=== PATIENT | male | born 1970 ===

== ENCOUNTER 2018-03-16 16:18 | Inpatient (IN) | payer MEDICARE, MEDICAID ==
[2018-03-16 16:32] VITALS: BMI 31.5
--- NOTE | 2018-03-16 16:50 | C.PDOC ---
History Of Present Illness 47 year old male presents to the ED requesting heroin detox. Patient reports using 7-10 bags daily and states he last used 4 bags at 0600 today. He denies suicidal/homicidal ideation at this time. Time Seen by Provider: 03/16/18 16:39 Chief Complaint (Nursing): Substance Abuse History Per: Patient History/Exam Limitations: no limitations Onset/Duration Of Symptoms: Hrs Current Symptoms Are (Timing): Still Present Suicide/Self Injury Attempted (Context): None Modifying Factor(s): Narcotics (heroin ) Associated Symptoms: denies: Suicidal Thoughts, Suicidal Plan Involuntary Hold By: None Recent travel outside of the [place]: No Additional History Per: Patient Past Medical History Reviewed: Historical Data, Nursing Documentation, Vital Signs Vital Signs: Last Vital Signs Temp 98.3 F 03/16/18 19:20 Pulse 78 03/16/18 19:01 Resp 18 03/16/18 19:01 BP 140/85 03/16/18 19:01 Pulse Ox 98 03/16/18 19:01 - Medical History PMH: Back Problems Surgical History: No Surg Hx Family History: States: Unknown Family Hx - Social History Hx Alcohol Use: Yes Hx Substance Use: Yes - Immunization History Hx Tetanus Toxoid Vaccination: Yes (2017) Hx Influenza Vaccination: No Hx Pneumococcal Vaccination: No Review Of Systems Psych: Positive for: Other (heroin detox ). Negative for: Suicidal ideation Physical Exam - Physical Exam Appears: Non-toxic, No Acute Distress Skin: Normal Color, Warm, Dry Head: Atraumatic, Normacephalic Eye(s): bilateral: Normal Inspection Oral Mucosa: Moist Neck: Supple Chest: Symmetrical, No Deformity, No Tenderness Cardiovascular: Rhythm Regular, No Murmur Respiratory: Normal Breath Sounds, No Rales, No Rhonchi, No Wheezing Extremity: Normal ROM, Capillary Refill (less than 2 seconds ) Neurological/Psych: Oriented x3, Normal Speech, Normal Cognition ED Course And Treatment - Laboratory Results Result Diagrams: 03/16/18 17:02 03/16/18 17:02 O2 Sat by Pulse Oximetry: 97 (on RA) Pulse Ox Interpretation: Normal Medical Decision Making Medical Decision Making: Progress: Bloodwork and urinalysis ordered and reviewed. 1730 Patient has been medically cleared. Disposition - Disposition Disposition: HOME/ ROUTINE Disposition Time: 19:31 Condition: STABLE - Clinical Impression Clinical Impression: Drug abuse - Scribe Statement The provider has reviewed the documentation as recorded by the Scribe (Zoraida Schwarz) Provider Attestation: All medical record entries made by the Scribe were at my direction and personally dictated by me. I have reviewed the chart and agree that the record accurately reflects my personal performance of the history, physical exam, medical decision making, and the department course for this patient. I have also personally directed, reviewed, and agree with the discharge instructions and disposition. Decision To Admit - Pt Status Changed To: Hospital Disposition Of: Inpatient - Admit Certification Admit to Inpatient:: After my assessment, the patient will require hospitalization for at least two midnights. This is because of the severity of symptoms shown, intensity of services needed, and/or the medical risk in this patient being treated as an outpatient. - InPatient: Physician Admission Certification: I certify that this patient requires 2 or more midnights of care for the following reason:: needs detox - . Bed Request Type: Detox Admitting Physician: Jana Ware Patient Diagnosis: Drug abuse
[2018-03-16 17:15] LABS: BASO # 0.1 K/uL (0.0-0.2); BASO % 1.4 % (0.0-2.0); EOS % 13.1 % (0.0-4.0); HEMOGLOBIN 13.2 g/dL (12.0-18.0); LYMPH # 2.1 K/uL (1.0-4.3); LYMPH % 28.7 % (20.0-40.0); MEAN CELL VOLUME 88.6 fL (80.0-94.0); MEAN CORPUSCULAR HEMOGLOBIN 30.1 pg (27.0-31.0); MEAN PLATELET VOLUME 8.1 fL (7.2-11.7); MONO # 0.7 K/uL (0.0-0.8); MONO % 9.6 % (0.0-10.0); NEUT # 3.5 K/uL (1.8-7.0); NEUT % 47.2 % (50.0-75.0); NRBC % 0.1 % (0.0-2.0); RBC 4.38 Mil/uL (4.40-5.90); RED CELL DISTRIBUTION WIDTH 13.9 % (11.5-14.5); WHITE BLOOD COUNT 7.4 K/uL (4.8-10.8)
[2018-03-16 17:24] LABS: SQUAMOUS EPITHIAL < 1 /hpf (0-5); URINE BACTERIA RARE (<OCC); URINE BILIRUBIN NEGATIVE (NEGATIVE); URINE BLOOD NEGATIVE (NEGATIVE); URINE CLARITY Hazy (Clear); URINE COLOR Yellow (YELLOW); URINE GLUCOSE (UA) NORMAL (Normal); URINE LEUKOCYTE ESTERASE NEG Leu/uL (Negative); URINE PROTEIN NEGATIVE (NEGATIVE); URINE UROBILINOGEN NORMAL mg/dL (0.2-1.0)
[2018-03-16 17:26] LABS: ALB/GLOB RATIO 1.2 (1.0-2.1); ALBUMIN 3.6 g/dL (3.5-5.0); ALT/SGPT 24 U/L (21-72); AST/SGOT 24 U/L (17-59); BLOOD UREA NITROGEN 17 mg/dL (9-20); CALCIUM 9.2 mg/dl (8.6-10.4); GFR AFRICAN-AMERICAN > 60; GFR NON-AFRICAN AMERICAN > 60
[2018-03-16 17:35] LABS: BARBITURATES, UR NEGATIVE (NEGATIVE); BENZODIAZEPINES, UR NEGATIVE (NEGATIVE); PHENCYCLIDINE, UR NEGATIVE (NEGATIVE)
[2018-03-16 17:37] LABS: OPIATES, UR POSITIVE (NEGATIVE)
--- NOTE | 2018-03-16 18:31 | PCM.BM ---
<Darryl Mendieta - Last Filed: 03/16/18 18:29> Treatment Plan Problems - Problems identified on initial assessmt potential for opiate withdrawal Date Initiated: 03/16/18 Time Initiated: 18:30 Status: Active Treatment assets and liabiliti Patient Assests: cooperative, ADL independent, cognitively intact Patient Liabilities: substance abuse - Milieu Protocol Maintain good personal hygiene: daily Encourage regular showers, daily Remind patient to perform daily oral care, daily Assist patient to perform ADL's Conduct patient checks and document Observation sheet: Q15 minutes Maintain personal safety: every shift Educate patient to report safety concerns to staff, every shift Monitor environment for contraband/sharps Medication safety: Monitor for expected outcome, potential side effects: every shift, Assess barriers to learning: every shift, Assess readiness for medication education: every shift <Reji Camacho - Last Filed: 03/17/18 15:20> - Diagnosis (1) Opioid use disorder, severe, dependence Status: Acute Interventions: 03/17/18 15:19 * Assess 7x/week regarding severity of withdrawal * Educate regarding risks, benefits, side effects and alternatives of medications * Use Motivational Interviewing for abstinence * Use CBT for relapse prevention * Medication management for withdrawal symptoms * Encourage medication assisted treatment *
[2018-03-17] MEDS ORDERED: Buprenorphine Hydrochloride 2 mg SL ONE ×4 (10:00→11:45)
--- NOTE | 2018-03-17 13:43 | PCM.PSYCH ---
Initial Psychiatric Evaluation - Initial Psychiatric Evaluation Type of Admission: Voluntary Legal Status: Capacity Chief Complaint (in patient's own words): CC: "I need help to get off heroin" History of Present Illness and Precipitating Events: HPI: 47 year old male presents for heroin detox. 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 He has a PMHx of back pain for which he took Percocet but began using heroin 1 year ago. He uses 7-10 bags intranasally daily, last use 4 bags yesterday at 6 AM. Patient also admits to using cocaine intranasally once a week starting one year ago. He smokes cigarettes and drinks alcohol occasionally. Patient reports one previous detox admission at [facility] toward the end of 2016 on Suboxone and stayed sober for 2-3 months before relapsing. He did not undergo rehab or followup in aftercare programs at the time. Denies hallucinations, suicidal or homicidal ideation. Patient states that he wishes to get off heroin because he is out of money and needs to get back to work. 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; born in [facility], lives in [place]; highest education 11th grade; uses 7 -10 bags intranasally daily; cocaine intranasally once a week; tobacco and alcohol use occasionally Family hx: denies family hx of psychiatric disorders or drug use Current Medications: Active Medications Generic Name Dose Route Start Last Admin Trade Name Freq PRN Reason Stop Dose Admin Buprenorphine HCl 6 mg 03/18/18 10:00 Subutex SL 03/21/18 09:59 .TAPER CHEPE Taper Clonidine HCl 0.1 mg 03/16/18 19:01 03/16/18 22:01 Catapres PO 0.1 mg Q8 PRN Administration COWS Score More or Equal to 5 Cyclobenzaprine HCl 5 mg 03/17/18 14:00 Flexeril PO TID CHEPE Gabapentin 400 mg 03/17/18 14:00 Neurontin PO TID [facility] Hydroxyzine HCl 50 mg 03/17/18 14:00 Atarax PO QID [facility] Ibuprofen 600 mg 03/16/18 19:02 Motrin Tab PO TID PRN Pain, moderate (4-7) Loperamide HCl 2 mg 03/16/18 19:01 Imodium PO Q8 PRN Diarrhea Ondansetron HCl 4 mg 03/16/18 19:01 Zofran Tab PO Q8 PRN Nausea/Vomiting Trazodone HCl 100 mg 03/17/18 22:00 Desyrel PO HS [facility] Past Psychiatric History - Past Psychiatric History Previous Treatment History: None Pertinent Medical Hx (Current Medical&Sleep Prob, Allergies): Allergies Allergy/AdvReac Type Severity Reaction Status Date / Time No Known Allergies Allergy Verified 03/16/18 16:31 Gabapentin 300 mg PO TID 03/16/18 Tizanidine HCl [Zanaflex Capsule] 6 mg PO TID 03/16/18 Review of Systems - Psychiatric Psychiatric: Abnormal Sleep Pattern, Anxiety, Irritability. absent: Hallucinations, Homicidal Ideation, Suicidal Ideation Mental Status Examination - Affect Affect: Constricted - Motor Activity Motor Activity: Calm - Reliability in Providing Information Reliability in Providing Information: Good - Speech Speech: Organized - Mood Mood: Depressed - Formal Thought Process Formal Thought Process: No Impairment - Cognitive Functions Orientation: Person, Place, Situation, Time Estimate of Intelligence: Average - Strength & Assets Inventory Strength & Assets Inventory: Employment history, Spiritual affiliations DSM 5 DX - DSM 5 DSM 5 Diagnosis: Opioid withdrawal Opioid use d/o - severe Cocaine use d/o - severe - Recommended/Plan of Treatment Treatment Recommendations and Plan of Treatment: Taper with Subutex Gabapentin for augmentation if needed As needed medications All risks, benefits and alternatives of the meds discussed, and the pt agreed and understood. Attend groups and activities Supportive therapy and psychoeducation [place] for abstinence CBT for relapse prevention Encourage MAT Refer to rehab or IOP, and self-help groups Smoking cessation with [place] Nicotine patch if needed 34 min Projected ELOS: 4-5 days Prognosis: good w treatment
[2018-03-18] MEDS: Buprenorphine Hydrochloride 2 mg SL SCH (09:17)
--- NOTE | 2018-03-18 12:51 | PCM.PYCHPN ---
Psychiatric Progress Note - Psychiatric Progress Note Patient Chief Complaint: CC: "I need help to get off heroin" Medication Change: Yes Medical Record Reviewed: Yes Mental Status Examination - Cognitive Function Orientation: Person, Place, Situation, Time - Mood Mood: Depressed - Affect Affect: Constricted - Formal Thought Process Formal Thought Process: No Impairment - Homicidal Ideation Homicidal Ideation: No Goal/Treatment Plan - Goal/Treatment Plan Progress Toward Problem(s) and Goals/Treatment Plan: Taper with Subutex Gabapentin for augmentation if needed As needed medications All risks, benefits and alternatives of the meds discussed, and the pt agreed and understood. Attend groups and activities Supportive therapy and psychoeducation [place] for abstinence CBT for relapse prevention Encourage MAT Refer to rehab or IOP, and self-help groups Smoking cessation with [place] Nicotine patch if needed 34 min
[2018-03-19] MEDS: Buprenorphine Hydrochloride 2 mg SL SCH (09:55)
[2018-03-20 06:33] VITALS: RESP 20
--- NOTE | 2018-03-20 08:52 | PCM.PYCHDC ---
Mental Status Examination - Mental Status Examination Orientation: Person Memory: Intact Affect: Broad Speech: Appropriate Attention: WNL Concentration: WNL Association: WNL Fund of Knowledge: WNL Formal Thought Process: No Impairment Suicidal Ideation: No Current Homicidal Ideation?: No Discharge Summary - Discharge Note Reason for Hospitalization: detox for heroin use Consultations:: List each consultation separately and include: 1. Reason for request. 2. Findings. 3. Follow-up Summary of Hospital Course include:: 1. Description of specific treatment plan utilized for patients during their course of treatmen. 2. Summarize the time- course for resolution of acute symptoms and/or regressed behaviors. 3. Describe issues identified and worked on during hospitalization. 4. Describe medication utilized. 5. Describe medical problems identified and treated. 6. Reassessment of suicide risk Summary of Hospital Course: HPI: 47 year old male presents for heroin detox. He lives with his eldest son (1 of 4 children) in [place] and is self employed in the [employer] business. He has a PMHx of back pain for which he took Percocet but began using heroin 1 year ago. He uses 7-10 bags intranasally daily, last use 4 bags yesterday at 6 AM. Patient also admits to using cocaine intranasally once a week starting one year ago. He smokes cigarettes and drinks alcohol occasionally. Patient reports one previous detox admission at [facility] toward the end of 2017 on Suboxone and stayed sober for 2-3 months before relapsing. He did not undergo rehab or followup in aftercare programs at the time. Denies hallucinations, suicidal or homicidal ideation. Patient states that he wishes to get off heroin because he is out of money and needs to get back to work. 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 - Diagnosis (1) Opioid use disorder, severe, dependence Status: Acute - Final Diagnosis (DSM 5) Condition upon Discharge: STABLE Disposition: HOME/ ROUTINE Follow-up Treatment Plan: Taper with Subutex Gabapentin for augmentation if needed As needed medications All risks, benefits and alternatives of the meds discussed, and the pt agreed and understood. Attend groups and activities Supportive therapy and psychoeducation [place] for abstinence CBT for relapse prevention Encourage MAT Refer to rehab or IOP, and self-help groups Smoking cessation with [place] Nicotine patch if needed 34 min Prescriptions/Medication Reconciliation: Gabapentin [Neurontin] 400 mg PO TID #90 cap traZODone [Desyrel] 100 mg PO HS #30 tab
[2018-03-20] MEDS: Buprenorphine Hydrochloride 2 mg SL SCH (09:05)
[2018-03-20 09:53] VITALS: BP 106/71; PULSE 68; TEMP 97.8; O2SAT 96
== END 2018-03-20 09:20 | disposition home or self-care (01) | DRG 897 ==
LOC: C.ER 16:18 → C.7D 18:16
PROVIDERS: ADMIT Psychiatry & Neurology Psychiatry; ATTEND Psychiatry & Neurology Psychiatry
PROC: HZ2ZZZZ Detoxification Services for Substance Abuse Treatment (ICD-10-PCS; principal; 2018-03-16)
DX: F11.23 Opioid dependence with withdrawal (principal); F14.90 Cocaine use, unspecified, uncomplicated; F17.210 Nicotine dependence, cigarettes, uncomplicated

== ENCOUNTER 2018-09-04 19:33 | Inpatient (IN) | payer MEDICARE, MEDICAID ==
[2018-09-04 19:33] VITALS: BMI 31.5
--- NOTE | 2018-09-04 20:22 | C.PDOC ---
History Of Present Illness Patient presents to the ER requesting detox from heroin, last use was a few hours ago. Denies physical complaints at this time. Time Seen by Provider: 09/04/18 20:21 Chief Complaint (Nursing): Substance Abuse History Per: Patient History/Exam Limitations: no limitations Onset/Duration Of Symptoms: Hrs Current Symptoms Are (Timing): Still Present Suicide/Self Injury Attempted (Context): None Modifying Factor(s): Other (Heroin) Severity: None Pain Scale Rating Of: 0 Associated Symptoms: denies: Depression, Suicidal Thoughts Involuntary Hold By: None Recent travel outside of the [place]: No Past Medical History Reviewed: Historical Data, Nursing Documentation, Vital Signs Vital Signs: Last Vital Signs Temp 98 F 09/04/18 19:57 Pulse 75 09/04/18 19:57 Resp 16 09/04/18 19:57 BP 94/65 L 09/04/18 19:57 Pulse Ox 97 09/04/18 19:57 - Medical History PMH: Back Problems Denies: Diabetes, Gastritis, Hepatitis, HIV, HTN, Seizures, Sexually Tr ansmitted Disease - [facility] Procedures DETOXIFICATION SERVICES FOR SUBSTANCE ABUSE TREATMENT (03/16/18) Family History: States: No Known Family Hx - Social History Hx Alcohol Use: No Hx Substance Use: Yes (heroin,, oxycodone) - Immunization History Hx Tetanus Toxoid Vaccination: Yes (2016) Hx Influenza Vaccination: No Hx Pneumococcal Vaccination: No Review Of Systems Constitutional: Negative for: Fever, Chills Cardiovascular: Negative for: Chest Pain, Palpitations Respiratory: Negative for: Cough, Shortness of Breath Gastrointestinal: Negative for: Nausea, Vomiting Neurological: Negative for: Weakness, Numbness Physical Exam - Physical Exam Appears: Non-toxic Skin: Warm, Dry Head: Normacephalic Oral Mucosa: Moist Neck: Supple Chest: Symmetrical, No Tenderness Cardiovascular: Rhythm Regular Respiratory: No Rales, No Rhonchi, No Wheezing Gastrointestinal/Abdominal: Soft, No Tenderness Back: Normal Inspection Extremity: Normal ROM Extremity: Bilateral: Atraumatic Neurological/Psych: Oriented x3 Gait: Steady ED Course And Treatment - Laboratory Results Result Diagrams: 09/04/18 20:15 09/04/18 20:15 O2 Sat by Pulse Oximetry: 97 (Room air) Pulse Ox Interpretation: Normal Progress Note: Blood work and urinalysis ordered. Crisis notified. Disposition Discussed With : Veronica Parker Comment: accepted the pt on his service and took over the care at 9:34 PM Doctor Will See Patient In The: Hospital Counseled Patient/Family Regarding: Studies Performed, Diagnosis - Disposition Disposition: HOSPITALIZED Disposition Time: 20:21 Condition: FAIR Forms: [facility] (Icelandic) - Clinical Impression Clinical Impression: Opioid use disorder, severe, dependence - Scribe Statement The provider has reviewed the documentation as recorded by the Scribgus Ferreira All medical record entries made by the Scribe were at my direction and personally dictated by me. I have reviewed the chart and agree that the record accurately reflects my personal performance of the history, physical exam, m edical decision making, and the department course for this patient. I have also personally directed, reviewed, and agree with the discharge instructions and disposition. Decision To Admit - Pt Status Changed To: Hospital Disposition Of: Inpatient - Admit Certification Admit to Inpatient:: After my assessment, the patient will require hospitalization for at least two midnights. This is because of the severity of symptoms shown, intensity of services needed, and/or the medical risk in this patient being treated as an outpatient. - InPatient: Physician Admission Certification: I certify that this patient requires 2 or more midnights of care for the following reason:: After my assessment, the patient will require hospitalization for at least two midnights. This is because of the severity of symptoms shown, intensity of services needed, and/or the medical risk in this patient being treated as an outpatient. - . Bed Request Type: Detox Admitting Physician: Veronica Parker Patient Diagnosis: Opioid use disorder, severe, dependence
[2018-09-04 20:42] LABS: SQUAMOUS EPITHIAL 1 /hpf (0-5); URINE BACTERIA OCC (<OCC); URINE BILIRUBIN NEGATIVE (NEGATIVE); URINE BLOOD NEGATIVE (NEGATIVE); URINE CLARITY Hazy (Clear); URINE COLOR Yellow (YELLOW); URINE GLUCOSE (UA) NORMAL (Normal); URINE LEUKOCYTE ESTERASE TRACE Leu/uL (Negative); URINE PROTEIN 1+ mg/dL (NEGATIVE); URINE UROBILINOGEN NORMAL mg/dL (0.2-1.0)
[2018-09-04 20:51] LABS: BARBITURATES, UR NEGATIVE (NEGATIVE); BENZODIAZEPINES, UR NEGATIVE (NEGATIVE); PHENCYCLIDINE, UR NEGATIVE (NEGATIVE)
[2018-09-04 21:03] LABS: OPIATES, UR POSITIVE (NEGATIVE)
[2018-09-04 21:06] LABS: BASO # 0.1 K/uL (0.0-0.2); BASO % 0.7 % (0.0-2.0); EOS # 0.2 K/uL (0.0-0.7); EOS % 2.9 % (0.0-4.0); HEMOGLOBIN 13.3 g/dL (12.0-18.0); LYMPH # 2.5 K/uL (1.0-4.3); LYMPH % 33.2 % (20.0-40.0); MEAN CELL VOLUME 88.9 fL (80.0-94.0); MEAN CORPUSCULAR HEMOGLOBIN 29.4 pg (27.0-31.0); MEAN CORPUSCULAR HGB CONC 33.1 g/dL (33.0-37.0); MEAN PLATELET VOLUME 7.6 fL (7.2-11.7); MONO # 0.6 K/uL (0.0-0.8); MONO % 8.2 % (0.0-10.0); NEUT # 4.1 K/uL (1.8-7.0); NRBC % 0.1 % (0.0-2.0); RBC 4.54 Mil/uL (4.40-5.90); RED CELL DISTRIBUTION WIDTH 14.2 % (11.5-14.5); WHITE BLOOD COUNT 7.5 K/uL (4.8-10.8)
[2018-09-04 21:29] LABS: ALB/GLOB RATIO 1.4 (1.0-2.1); ALBUMIN 4.3 g/dL (3.5-5.0); ALT/SGPT 22 U/L (21-72); AST/SGOT 20 U/L (17-59); BLOOD UREA NITROGEN 16 mg/dL (9-20); CALCIUM 9.3 mg/dl (8.6-10.4); GFR NON-AFRICAN AMERICAN 55
--- NOTE | 2018-09-04 22:03 | PCM.BM ---
<Darryl Mendieta - Last Filed: 09/04/18 22:01> Treatment Plan Problems - Problems identified on initial assessmt potrntial for opiate withdrawal Status: Active Treatment assets and liabiliti Patient Assests: cooperative, ADL independent, cognitively intact Patient Liabilities: substance abuse - Milieu Protocol Maintain good personal hygiene: daily Encourage regular showers, daily Remind patient to perform daily oral care, daily Assist patient to perform ADL's Conduct patient checks and document Observation sheet: Q15 minutes Maintain personal safety: every shift Educate patient to report safety concerns to staff, every shift Monitor environment for contraband/sharps Medication safety: Monitor for expected outcome, potential side effects: every shift, Assess barriers to learning: every shift, Assess readiness for medication education: every shift <Reji Camacho - Last Filed: 09/05/18 10:58> - Diagnosis (1) Opioid use disorder, severe, dependence Status: Acute Interventions: 09/05/18 10:58 * Assess 7x/week regarding severity of withdrawal * Educate regarding risks, benefits, side effects and alternatives of medications * Use Motivational Interviewing for abstinence * Use CBT for relapse prevention * Medication management for withdrawal symptoms * Encourage medication assisted treatment *
[2018-09-04] MEDS ORDERED: Buprenorphine Hydrochloride 2 mg SL ONE (22:24)
[2018-09-04] MEDS ORDERED: Magnesium Hydroxide Susp 30 ml UD PO ONE (22:45)
[2018-09-04] MEDS ORDERED: Aluminum Hydroxide/Magnesium Hydroxide Susp (30 mL) PO PRN (23:09)
[2018-09-05] MEDS: Buprenorphine Hydrochloride 2 mg SL SCH ×3 (00:19→02:04)
--- NOTE | 2018-09-05 10:56 | PCM.PSYCH ---
Initial Psychiatric Evaluation - Initial Psychiatric Evaluation Type of Admission: Voluntary Legal Status: Capacity Chief Complaint (in patient's own words): "I don't feel well" History of Present Illness and Precipitating Events: He is seen, chart reviewed, and case discussed. He is a 48 year old male who is single and has four children ages 20, 18, 16, and 15. 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 He uses 10 bags of heroin a day by snorting. He says he only smokes cigarettes when he is using, about 1 pack a day. He also snorted 1 gram of cocaine a couple weeks ago but states it is not regular. When it is available, he takes oxycodone. He denies use of alcohol. He was in detoxification before until completion in March. He was also in suboxone program briefly and rehab once. He remained clean until last month. Pt denies suicidal or homicidal ideations. Pt has a poor appetite and sleep. Pt has low energy and nausea. Past Medical History: Artificial disk in back Medications: Gabapentin, Zanaflex Allergies: Denies Family History: Denies Psychiatric History: Denies Current Medications: Active Medications Generic Name Dose Route Start Last Admin Trade Name Freq PRN Reason Stop Dose Admin Acetaminophen 650 mg 09/04/18 22:45 09/04/18 23:12 Tylenol 325mg Tab PO 650 mg Q8 PRN Administration Pain, moderate (4-7) Al Hydrox/Mg Hydrox/Simethicone 30 ml 09/04/18 23:09 Maalox 30 Ml PO TID PRN Indigestion / Heartburn Buprenorphine HCl 0 mg 09/05/18 23:10 Subutex SL 09/09/18 23:09 .TAPER CHEPE Taper Cyclobenzaprine HCl 5 mg 09/05/18 14:00 Flexeril PO TID CHEPE Gabapentin 300 mg 09/05/18 14:00 Neurontin PO TID CHEPE Hydroxyzine HCl 25 mg 09/04/18 23:11 Atarax PO Q6 PRN Anxiety Loperamide HCl 2 mg 09/04/18 23:09 Imodium PO Q8 PRN Diarrhea Ondansetron HCl 4 mg 09/04/18 23:09 Zofran Tab PO Q8 PRN Nausea/Vomiting Pseudoephedrine HCl 60 mg 09/04/18 23:09 Sudafed Tab PO QID PRN Nasal/Sinus Congestion Trazodone HCl 50 mg 09/04/18 22:14 09/04/18 23:13 Desyrel PO 50 mg HS PRN Administration Insomnia Past Psychiatric History - Past Psychiatric History Previous Treatment History: None Pertinent Medical Hx (Current Medical&Sleep Prob, Allergies): Allergies Allergy/AdvReac Type Severity Reaction Status Date / Time No Known Allergies Allergy Verified 09/04/18 19:56 Gabapentin 300 mg PO TID 03/16/18 Tizanidine HCl [Zanaflex] 4 mg PO TID 03/16/18 Review of Systems - Neurological Neurological: UNREMARKABLE - Psychiatric Psychiatric: Abnormal Sleep Pattern, Anhedonia, Anxiety, Change in Appetite, Difficulty Concentrating, Irritability. absent: Hallucinations, Homicidal Ideation, Paranoia, Suicidal Ideation Mental Status Examination - Personal Presentation Personal Presentation: Looks older than stated age - Affect Affect: Constricted - Motor Activity Motor Activity: Calm - Reliability in Providing Information Reliability in Providing Information: Good - Speech Speech: Organized - Mood Mood: Anxious - Formal Thought Process Formal Thought Process: No Impairment - Cognitive Functions Orientation: Person, Place, Situation, Time Sensorium: Alert Attention/Concentration: Attentive Estimate of Intelligence: Average Judgement: Intact, as evidence by: Insight regarding need for hospitalization Memory: Recent intact, as evidence by: Ability to recall events of the day, Remote intact, as evidenced by: Abilit to recall sig. life events - Risk Risk: Withdrawal, Diminished functioning - Strength & Assets Inventory Strength & Assets Inventory: Cooperative - Limitations Limitations: Other DSM 5 DX - DSM 5 DSM 5 Diagnosis: Opioid withdrawal opioid use d/o -severe Cocaine use d/o Personality d/o - unspecified - Recommended/Plan of Treatment Treatment Recommendations and Plan of Treatment: Taper with subutex Gabapentin for augmentation if needed As needed medications All risks, benefits and alternatives of the meds discussed, and the pt agreed and understood. Attend groups and activities Supportive therapy and psychoeducation [place] for abstinence CBT for relapse prevention Encourage MAT Refer to rehab or IOP, and self-help groups Teach healthy lifestyle methods, i.e. diet, exercise, meditation Smoking cessation with [place] Nicotine patch if needed 34 min Projected ELOS: 4 days Prognosis: good with treatment
[2018-09-05] MEDS ORDERED: Buprenorphine Hydrochloride 2 mg SL ONE ×2 (12:30→13:30)
[2018-09-05] MEDS ORDERED: Buprenorphine Hydrochloride 2 mg SL SCH (23:10)
[2018-09-06] MEDS ORDERED: Buprenorphine Hydrochloride 2 mg SL ONE (08:56)
[2018-09-06] MEDS: Multiple Vitamins Tab PO SCH (10:28)
--- NOTE | 2018-09-06 13:45 | PCM.PYCHPN ---
Psychiatric Progress Note - Psychiatric Progress Note Patient seen today, length of contact: 16 min Patient Chief Complaint: "I am still withdrawing" Problems Identified/Issues Discussed: The pt is seen, chart reviewed, case discussed with staff. The pt is compliant with medications and reports no side-effects. Symptoms are improving but needs more time to stabilize. He asked for lower dose yesterday, so 6 mg given, and 4 mg today. Will get extra if needed. Pt attends groups and activities. Support given, psycho-education provided. After care discussed. Medication Change: Yes (detox changes daily) Medical Record Reviewed: Yes Mental Status Examination - Cognitive Function Orientation: Person, Place, Situation, Time Memory: Intact Attention: WNL Concentration: Poor Association: WNL Fund of Knowledge: WNL - Mood Mood: Anxious - Affect Affect: Constricted - Speech Speech: Appropriate - Formal Thought Process Formal Thought Process: No Impairment - Suicidal Ideation Suicidal Ideation: No - Homicidal Ideation Homicidal Ideation: No Goal/Treatment Plan - Goal/Treatment Plan Need for Continued Stay: Discharge may exacerbated symptoms, Severe functional impairment Progress Toward Problem(s) and Goals/Treatment Plan: Taper with subutex Gabapentin for augmentation if needed As needed medications All risks, benefits and alternatives of the meds discussed, and the pt agreed and understood. Attend groups and activities Supportive therapy and psychoeducation [place] for abstinence CBT for relapse prevention Encourage MAT Refer to rehab or IOP, and self-help groups Teach healthy lifestyle methods, i.e. diet, exercise, meditation Smoking cessation with [place] Nicotine patch if needed
[2018-09-07] MEDS ORDERED: Buprenorphine Hydrochloride 2 mg SL ONE ×2 (08:48→10:15)
[2018-09-07] MEDS: Multiple Vitamins Tab PO SCH (09:58)
--- NOTE | 2018-09-07 12:02 | PCM.PYCHPN ---
Psychiatric Progress Note - Psychiatric Progress Note Patient seen today, length of contact: 16 min Patient Chief Complaint: "I feel sick again" Problems Identified/Issues Discussed: The pt is seen, chart reviewed, case discussed with staff. Support and psychoeducation given, CBT and [place] used briefly he said he had more symptoms yesterday afetrnoon but held himself from taking an extra pill Today he doesn't feel like he can be discharged and he says he will see if 2 mg will hold him. D/C is postponed to tomorrow b/c of that No SEs from medications, risks discussed. After care discussed Medication Change: Yes (detox changes daily) Medical Record Reviewed: Yes Mental Status Examination - Cognitive Function Orientation: Person, Place, Situation, Time Memory: Intact Attention: WNL Concentration: Poor Association: WNL Fund of Knowledge: WNL - Mood Mood: Anxious - Affect Affect: Constricted - Speech Speech: Appropriate - Formal Thought Process Formal Thought Process: No Impairment - Suicidal Ideation Suicidal Ideation: No - Homicidal Ideation Homicidal Ideation: No Goal/Treatment Plan - Goal/Treatment Plan Need for Continued Stay: Discharge may exacerbated symptoms, Severe functional impairment Progress Toward Problem(s) and Goals/Treatment Plan: Taper with subutex will be extended to tomorrow and end tomorrow Gabapentin for augmentation if needed As needed medications All risks, benefits and alternatives of the meds discussed, and the pt agreed and understood. Attend groups and activities Supportive therapy and psychoeducation [place] for abstinence CBT for relapse prevention Encourage MAT Refer to rehab or IOP, and self-help groups Teach healthy lifestyle methods, i.e. diet, exercise, meditation Smoking cessation with [place] Nicotine patch if needed Estimated Date of D/C: 09/08/18
[2018-09-07 14:08] VITALS: RESP 18
--- NOTE | 2018-09-08 08:52 | PCM.PYCHDC ---
Mental Status Examination - Mental Status Examination Orientation: Person Discharge Summary - Discharge Note Consultations:: List each consultation separately and include: 1. Reason for request. 2. Findings. 3. Follow-up Summary of Hospital Course include:: 1. Description of specific treatment plan utilized for patients during their course of treatmen. 2. Summarize the time- course for resolution of acute symptoms and/or regressed behaviors. 3. Describe issues identified and worked on during hospitalization. 4. Describe medication utilized. 5. Describe medical problems identified and treated. 6. Reassessment of suicide risk Summary of Hospital Course: He is seen, chart reviewed, and case discussed. He is a 48 year old male who is single and has four children ages 20, 18, 16, an d 15. 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 He uses 10 bags of heroin a day by snorting. He says he only smokes cigarettes when he is using, about 1 pack a day. He also snorted 1 gram of cocaine a couple weeks ago but states it is not regular. When it is available, he takes oxycodone. He denies use of alcohol. He was in detoxification before until completion in March. He was also in suboxone program briefly and rehab once. He remained clean until last month. Pt denies suicidal or homicidal ideations. Pt has a poor appetite and sleep. Pt has low energy and nausea. 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 Attend groups and activities Supportive therapy and psychoeducation [place] for abstinence CBT for relapse prevention Encourage MAT Refer to rehab or IOP, and self-help groups Teach healthy lifestyle methods, i.e. diet, exercise, meditation Smoking cessation with [place] Nicotine patch if needed Prescriptions/Medication Reconciliation: Cyclobenzaprine [Flexeril] 5 mg PO BID #60 tab Gabapentin [Neurontin] 300 mg PO TID #90 cap hydrOXYzine HCl [Atarax] 25 mg PO BID PRN #30 tab PRN Reason: Anxiety QUEtiapine [Seroquel] 100 mg PO HS #30 tab traZODone [Desyrel] 50 mg PO HS PRN #30 tab PRN Reason: Insomnia
[2018-09-08] MEDS ORDERED: Buprenorphine Hydrochloride 2 mg SL ONE (09:00)
[2018-09-08] MEDS: Multiple Vitamins Tab PO SCH (09:22)
[2018-09-08 10:42] VITALS: BP 117/76; PULSE 90; TEMP 97.7; O2SAT 99
== END 2018-09-08 09:40 | disposition home or self-care (01) | DRG 895 ==
LOC: C.ER 19:33 → SUPCPDRO 19:33 → C.7D 21:32
PROVIDERS: ADMIT Psychiatry & Neurology Psychiatry; ATTEND Psychiatry & Neurology Psychiatry
PROC: HZ52ZZZ Individual Psychotherapy for Substance Abuse Treatment, Cognitive-Behavioral (ICD-10-PCS; principal; 2018-09-04)
PROC: HZ2ZZZZ Detoxification Services for Substance Abuse Treatment (ICD-10-PCS; 2018-09-04)
PROC: HZ59ZZZ Individual Psychotherapy for Substance Abuse Treatment, Supportive (ICD-10-PCS; 2018-09-04)
PROC: HZ56ZZZ Individual Psychotherapy for Substance Abuse Treatment, Psychoeducation (ICD-10-PCS; 2018-09-04)
PROC: HZ42ZZZ Group Counseling for Substance Abuse Treatment, Cognitive-Behavioral (ICD-10-PCS; 2018-09-04)
PROC: HZ46ZZZ Group Counseling for Substance Abuse Treatment, Psychoeducation (ICD-10-PCS; 2018-09-04)
PROC: GZHZZZZ Group Psychotherapy (ICD-10-PCS; 2018-09-04)
PROC: GZ58ZZZ Individual Psychotherapy, Cognitive-Behavioral (ICD-10-PCS; 2018-09-04)
PROC: GZ56ZZZ Individual Psychotherapy, Supportive (ICD-10-PCS; 2018-09-04)
DX: F11.23 Opioid dependence with withdrawal (principal); F14.10 Cocaine abuse, uncomplicated; F17.210 Nicotine dependence, cigarettes, uncomplicated; F60.9 Personality disorder, unspecified; F41.9 Anxiety disorder, unspecified